=== PATIENT | male | born 1955 | race African-American/Black ===

== ENCOUNTER 2017-08-06 12:24 | Emergency (ER) | payer MEDICARE, MEDICAID ==
[~2017-08-06] VITALS: Ht 177.8 cm; Wt 80.0 kg
[2017-08-06] MEDS ORDERED: INSU100I7 SQ (12:29)
[2017-08-06] MEDS ORDERED: SODIUM CHLORIDE 0.9% 1,000 ML IV ONE (12:42)
[2017-08-06 13:01] LABS: PROTHROMBIN TIME 10.7 sec (9.4-11.6)
[2017-08-06 13:03] LABS: CARBON DIOXIDE 29 mEq/L (21-32); CHLORIDE 105 mEq/L (98-107)
[2017-08-06 13:04] LABS: BASOPHILS % 0.6 % (0.0-2.0); EOSINOPHILS % 1.6 % (0.0-5.0); HEMOGLOBIN. 13.2 g/dL (14.0-18.0); LYMPHOCYTES % 27.8 % (20.0-50.0); MEAN CORPUSCULAR HEMOGLOBIN 32.3 pg (28.0-32.0); MEAN PLATELET VOLUME 7.8 fl (7.4-10.4); MONOCYTES % 7.8 % (2.0-8.0); NEUTROPHILS % 62.2 % (40.0-76.0); PLATELET 230 x1000/uL (130-400)
[2017-08-06 13:10] LABS: ETHANOL BLOOD < 10 mg/dL; TROPONIN I < 0.02 ng/mL (0.00-0.04)
[2017-08-06 16:10] VITALS: BP 131/89
[2017-08-06 16:38] LABS: CLARITY URINE CLEAR (CLEAR); COLOR URINE YELLOW (YELLOW); GLUCOSE URINE NEGATIVE (NEGATIVE); KETONES URINE NEGATIVE (NEGATIVE); LEUKOCYTE ESTERASE URINE NEGATIVE (NEGATIVE); NITRITE URINE NEGATIVE (NEGATIVE); OCCULT BLOOD URINE NEGATIVE (NEGATIVE); PH URINE 6.5 (4.5-8.0); PROTEIN URINE NEGATIVE (NEGATIVE); SPECIFIC GRAVITY URINE 1.021 (1.005-1.030)
[2017-08-06 16:49] LABS: *AMPHETAMINES SCREEN URINE NEGATIVE (NEGATIVE); *BARBITURATES SCREEN URINE NEGATIVE (NEGATIVE); *BENZODIAZEPINES SCREEN URINE NEGATIVE (NEGATIVE); *COCAINE SCREEN URINE PRESUMTIVE POSITIVE (NEGATIVE); CANNABINOID URINE SCREEN NEGATIVE (NEGATIVE); METHADONE URINE SCREEN NEGATIVE (NEGATIVE); OPIATES URINE SCREEN NEGATIVE (NEGATIVE); PHENCYCLIDINE URINE SCREEN NEGATIVE (NEGATIVE)
== END 2017-08-06 16:35 | disposition home or self-care (01) ==
LOC: ER 12:44
DX: R53.83 Other fatigue (principal); I50.9 Heart failure, unspecified; I11.0 Hypertensive heart disease with heart failure; E11.9 Type 2 diabetes mellitus without complications; Z79.4 Long term (current) use of insulin
CPT/HCPCS: 36415; 71010; 80053; 80305; 81003; 82962; 84484; 85025; 85610; 96360; 96361; 99285; G0482; J7030

== ENCOUNTER 2020-07-05 09:06 | Inpatient (IN) | payer MEDICAID, MEDICARE, OTHER ==
[~2020-07-05] VITALS: Ht 182.9 cm; Wt 89.8 kg
[~2020-07-05 09:06] MED LIST: INSU100I7 SQ
[2020-07-05] MEDS ORDERED: METHYLPREDNISOLONE SOD SUCC 125 MG/2 ML VIAL IV STA (10:11)
[2020-07-05] MEDS ORDERED: ALBUTEROL (0.083%) 2.5MG/3ML NEB HHN STA (10:11)
[2020-07-05] MEDS ORDERED: MORPHINE SULFATE 4 MG/ML CPJ (NOT FOR IM USE) IV STA (10:11)
[2020-07-05] MEDS ORDERED: IPRATROPIUM BROMIDE (0.02%) 0.5MG/2.5ML NEB HHN STA (10:11)
[2020-07-05 10:26] LABS: BASOPHILS % 0.7 % (0.0-2.0); EOSINOPHILS % 1.1 % (0.0-5.0); HEMATOCRIT. 42.3 % (42.0-52.0); HEMOGLOBIN. 14.2 g/dL (14.0-18.0); LYMPHOCYTES % 28.2 % (20.0-50.0); MEAN CORPUSCULAR VOLUME 100.9 fL (80.0-94.0); MEAN PLATELET VOLUME 8.2 fl (7.4-10.4); MONOCYTES % 7.4 % (2.0-8.0); NEUTROPHILS % 62.6 % (40.0-76.0); PLATELET 203 x1000/uL (130-400); RED BLOOD CELL COUNT 4.19 mill/uL (4.7-6.1); RED CELL DISTRIBUTION WIDTH 12.5 % (11.6-14.6)
[2020-07-05 10:40] LABS: CHLORIDE 104 mEq/L (98-107)
[2020-07-05] MEDS ORDERED: ACETAMINOPHEN 325MG TABLET PO PRN (15:15)
[2020-07-05] MEDS ORDERED: DEXTROSE 50% WATER 50ML SYRINGE IV PRN (15:15)
[2020-07-05] MEDS ORDERED: ENOXAPARIN 40MG/0.4ML SYR SUBCUT SCH (16:00)
[2020-07-05] MEDS ORDERED: ONDANSETRON HCL 4MG/2ML INJ IV PRN (16:30)
[2020-07-05] MEDS: BLOOD SUGAR DIAGNOSTIC STRIP TEST SCH ×2 (17:00→20:52)
[2020-07-05 17:48] VITALS: BP 146/80
[2020-07-05 18:00] VITALS: BP 146/80
[2020-07-05] MEDS: INSULIN LISPRO 100 UNITS/ML SUBCUT SCH ×2 (18:29→20:51)
[2020-07-05] MEDS ORDERED: PNEUMOCOCCAL 23-VAL P-SAC VAC 0.5 ML IM ONE (18:30)
[2020-07-05 19:13] LABS: INR 1.1; PROTHROMBIN TIME 11.4 sec (9.6-11.0)
[2020-07-05 20:00] VITALS: BP 114/56
[2020-07-05] MEDS: ENOXAPARIN 100MG/ML SYR SUBCUT SCH (20:57)
[2020-07-05] MEDS: IPRATROPIUM/ALBUTEROL 0.5-3(2.5)MG/3ML NEB HHN SCH (21:01)
[2020-07-05 21:34] LABS: *BARBITURATES SCREEN URINE NEGATIVE (NEGATIVE); *BENZODIAZEPINES SCREEN URINE NEGATIVE (NEGATIVE); *COCAINE SCREEN URINE PRESUMTIVE POSITIVE (NEGATIVE); METHADONE URINE SCREEN NEGATIVE (NEGATIVE); OPIATES URINE SCREEN PRESUMTIVE POSITIVE (NEGATIVE); PHENCYCLIDINE URINE SCREEN NEGATIVE (NEGATIVE)
[2020-07-05 21:35] LABS: *AMPHETAMINES SCREEN URINE NEGATIVE (NEGATIVE); CANNABINOID URINE SCREEN NEGATIVE (NEGATIVE)
[2020-07-05] MEDS: TEMAZEPAM 15MG CAPSULE PO PRN (21:43)
[2020-07-05 22:00] VITALS: BP 131/77
[2020-07-06] VITALS (11 sets, daily range): BP systolic 119–146; BP diastolic 75–88
[2020-07-06] MEDS: IPRATROPIUM/ALBUTEROL 0.5-3(2.5)MG/3ML NEB HHN SCH ×6 (00:30→20:54)
[2020-07-06 06:50] LABS: CHLORIDE 104 mEq/L (98-107)
[2020-07-06] MEDS: BLOOD SUGAR DIAGNOSTIC STRIP TEST SCH ×4 (06:50→20:16)
[2020-07-06 06:54] LABS: BASOPHILS % 0.3 % (0.0-2.0); EOSINOPHILS % 0.2 % (0.0-5.0); HEMATOCRIT. 38.4 % (42.0-52.0); HEMOGLOBIN. 13.1 g/dL (14.0-18.0); LYMPHOCYTES % 15.4 % (20.0-50.0); MEAN CORPUSCULAR HEMOGLOBIN 34.5 pg (28.0-32.0); MEAN CORPUSCULAR VOLUME 100.9 fL (80.0-94.0); MEAN PLATELET VOLUME 8.2 fl (7.4-10.4); MONOCYTES % 6.6 % (2.0-8.0); NEUTROPHILS % 77.5 % (40.0-76.0); PLATELET 184 x1000/uL (130-400); RED BLOOD CELL COUNT 3.81 mill/uL (4.7-6.1); RED CELL DISTRIBUTION WIDTH 12.4 % (11.6-14.6)
[2020-07-06] MEDS: INSULIN LISPRO 100 UNITS/ML SUBCUT SCH ×4 (08:46→20:16)
[2020-07-06] MEDS: ENOXAPARIN 100MG/ML SYR SUBCUT SCH (08:56)
[2020-07-06] MEDS ORDERED: IOHEXOL-350 100 ML BOTTLE ONE (09:48)
[2020-07-06] MEDS: ENOXAPARIN 80MG/0.8ML SYR SUBCUT SCH (20:16)
[2020-07-06] MEDS: TEMAZEPAM 15MG CAPSULE PO PRN (20:16)
[2020-07-06] MEDS: FAMOTIDINE 20MG TABLET PO SCH (23:46)
[2020-07-06] MEDS: TRAZODONE HCL 50MG TABLET PO SCH (23:46)
[2020-07-07] VITALS (12 sets, daily range): BP systolic 101–131; BP diastolic 59–95
[2020-07-07] MEDS: IPRATROPIUM/ALBUTEROL 0.5-3(2.5)MG/3ML NEB HHN SCH ×6 (04:00→20:47)
[2020-07-07] MEDS ORDERED: METF-416 PO (05:56)
[2020-07-07] MEDS ORDERED: ASPI-1497 PO (05:56)
[2020-07-07] MEDS: BLOOD SUGAR DIAGNOSTIC STRIP TEST SCH ×4 (06:23→21:04)
[2020-07-07] MEDS: FAMOTIDINE 20MG TABLET PO SCH ×2 (07:41→21:03)
[2020-07-07] MEDS: ENOXAPARIN 80MG/0.8ML SYR SUBCUT SCH ×2 (07:41→21:03)
[2020-07-07] MEDS: LOSARTAN POTASSIUM 25 MG TABLET PO SCH (07:41)
[2020-07-07] MEDS: INSULIN LISPRO 100 UNITS/ML SUBCUT SCH ×4 (07:44→21:00)
[2020-07-07 12:19] LABS: BG BASE EXCESS 0.4 mmol/L (-2.0-2.0); BG CARBOXYHEMOGLOBIN 0.1 % (0.5-1.5); BG FRACTION INSPIRED OXYGEN 21; BG HCO3 ACT 25.6 mmol/L (22.0-26.0); BG METHEMOGLOBIN 0.2 % (0.0-1.5); BG OXYHEMOGLOBIN 96.7 % (94.0-97.0); BG PH 7.392 (7.350-7.450); BG PO2 91.8 mmHg (75.0-100.0); BG SAMPLE SITE RIGHT RADIAL; BG TOTAL HEMOGLOBIN 14.1 g/dL (12.0-18.0); BG VENT MODE RA
[2020-07-07] MEDS ORDERED: APIX5TAB MT (12:30)
[2020-07-07] MEDS ORDERED: LOSA25TA3 MT (12:30)
[2020-07-07] MEDS ORDERED: ALBU90AE INH (12:30)
[2020-07-07] MEDS ORDERED: BLOO1KIT74 TP (12:30)
[2020-07-07] MEDS ORDERED: NICO-645 TP (13:30)
[2020-07-07] MEDS: HYDROCODONE/ACETAMINOPHEN 5/325MG TABLET PO PRN ×2 (13:31→19:30)
[2020-07-07] MEDS: NICOTINE 14MG PATCH TD SCH (15:51)
[2020-07-07] MEDS: TRAZODONE HCL 50MG TABLET PO SCH (21:03)
[2020-07-07] MEDS: TEMAZEPAM 15MG CAPSULE PO PRN (21:03)
[2020-07-08] VITALS (12 sets, daily range): BP systolic 111–163; BP diastolic 67–95
[2020-07-08] MEDS: IPRATROPIUM/ALBUTEROL 0.5-3(2.5)MG/3ML NEB HHN SCH ×3 (00:35→17:35)
[2020-07-08] MEDS: BLOOD SUGAR DIAGNOSTIC STRIP TEST SCH ×4 (06:21→20:15)
[2020-07-08] MEDS: INSULIN LISPRO 100 UNITS/ML SUBCUT SCH ×5 (07:20→21:52)
[2020-07-08] MEDS: LOSARTAN POTASSIUM 25 MG TABLET PO SCH (09:43)
[2020-07-08] MEDS: ENOXAPARIN 80MG/0.8ML SYR SUBCUT SCH ×2 (09:43→20:09)
[2020-07-08] MEDS: FAMOTIDINE 20MG TABLET PO SCH ×2 (09:43→20:09)
[2020-07-08] MEDS: NICOTINE 14MG PATCH TD SCH (09:44)
[2020-07-08] MEDS: HYDROCODONE/ACETAMINOPHEN 10/325MG TABLET PO PRN (09:44)
[2020-07-08 15:28] LABS: HEMATOCRIT 39.9 % (42.0-52.0); HEMOGLOBIN 13.3 g/dL (14.0-18.0); MEAN CORPUSCULAR HEMOGLOBIN 33.9 pg (28.0-32.0); MEAN CORPUSCULAR VOLUME 101.5 fL (80.0-94.0); PLATELET 200 x1000/uL (130-400); RED BLOOD CELL COUNT 3.93 mill/uL (4.7-6.1); RED CELL DISTRIBUTION WIDTH 12.3 % (11.6-14.6)
[2020-07-08 15:32] LABS: CHLORIDE 102 mEq/L (98-107)
[2020-07-08] MEDS: TEMAZEPAM 15MG CAPSULE PO PRN ×2 (20:09→21:53)
[2020-07-08] MEDS: TRAZODONE HCL 50MG TABLET PO SCH (20:09)
[2020-07-09] VITALS (8 sets, daily range): BP systolic 111–141; BP diastolic 71–101
[2020-07-09] MEDS: BLOOD SUGAR DIAGNOSTIC STRIP TEST SCH ×4 (07:40→21:02)
[2020-07-09] MEDS: INSULIN LISPRO 100 UNITS/ML SUBCUT SCH ×3 (08:10→21:00)
[2020-07-09] MEDS: NICOTINE 14MG PATCH TD SCH (09:07)
[2020-07-09] MEDS: FAMOTIDINE 20MG TABLET PO SCH ×2 (09:07→20:48)
[2020-07-09] MEDS: LOSARTAN POTASSIUM 25 MG TABLET PO SCH (09:07)
[2020-07-09] MEDS: ENOXAPARIN 80MG/0.8ML SYR SUBCUT SCH ×2 (09:09→20:48)
[2020-07-09] MEDS: HYDROCODONE/ACETAMINOPHEN 5/325MG TABLET PO PRN ×2 (11:55→20:51)
[2020-07-09] MEDS: TRAZODONE HCL 50MG TABLET PO SCH (20:50)
[2020-07-09] MEDS: TEMAZEPAM 15MG CAPSULE PO PRN (20:50)
[2020-07-10] VITALS: BP 102/63
[2020-07-10] MEDS: BLOOD SUGAR DIAGNOSTIC STRIP TEST SCH ×4 (06:54→20:20)
[2020-07-10] MEDS: INSULIN LISPRO 100 UNITS/ML SUBCUT SCH ×4 (06:54→21:00)
[2020-07-10 08:00] VITALS: BP 110/65
[2020-07-10] MEDS: NICOTINE 14MG PATCH TD SCH (09:09)
[2020-07-10] MEDS: ENOXAPARIN 80MG/0.8ML SYR SUBCUT SCH ×2 (09:10→20:18)
[2020-07-10] MEDS: LOSARTAN POTASSIUM 25 MG TABLET PO SCH (09:10)
[2020-07-10] MEDS: FAMOTIDINE 20MG TABLET PO SCH ×2 (09:10→20:18)
[2020-07-10] MEDS: HYDROCODONE/ACETAMINOPHEN 10/325MG TABLET PO PRN ×2 (09:53→20:20)
[2020-07-10 12:00] VITALS: BP 111/68
[2020-07-10 20:00] VITALS: BP 136/90
[2020-07-10] MEDS: TRAZODONE HCL 50MG TABLET PO SCH (20:19)
[2020-07-10] MEDS: IPRATROPIUM/ALBUTEROL 0.5-3(2.5)MG/3ML NEB HHN SCH (20:30)
[2020-07-11] VITALS: BP 116/82
[2020-07-11] MEDS: IPRATROPIUM/ALBUTEROL 0.5-3(2.5)MG/3ML NEB HHN SCH ×4 (00:26→12:18)
[2020-07-11 04:00] VITALS: BP 106/64
[2020-07-11] MEDS: INSULIN LISPRO 100 UNITS/ML SUBCUT SCH ×2 (06:17→12:40)
[2020-07-11] MEDS: BLOOD SUGAR DIAGNOSTIC STRIP TEST SCH ×2 (06:17→12:10)
[2020-07-11] MEDS: HYDROCODONE/ACETAMINOPHEN 10/325MG TABLET PO PRN (06:20)
[2020-07-11 08:00] VITALS: BP 125/68
[2020-07-11] MEDS: NICOTINE 14MG PATCH TD SCH (09:00)
[2020-07-11] MEDS: FAMOTIDINE 20MG TABLET PO SCH (09:00)
[2020-07-11] MEDS: ENOXAPARIN 80MG/0.8ML SYR SUBCUT SCH (09:49)
[2020-07-11] MEDS: LOSARTAN POTASSIUM 25 MG TABLET PO SCH (09:49)
[2020-07-11 12:00] VITALS: BP 118/72
[2020-07-11 13:34] VITALS: BP 118/72
== END 2020-07-11 15:30 | disposition home or self-care (01) | DRG 177 ==
LOC: ER 09:06 → 3WST 13:53 → EDBEDREQ 13:55 → ENRESERV 16:59 → CANRESERV 16:59 → ENRESERV 17:00 → 7WST 07-08 20:32 → 8WST 07-09 17:35
PROVIDERS: ADMIT Internal Medicine; ATTEND Internal Medicine
DX: U07.1 COVID-19 (principal); I26.99 Other pulmonary embolism without acute cor pulmonale; I50.43 Acute on chronic combined systolic (congestive) and diastolic (congestive) heart failure; J12.89 Other viral pneumonia; J44.1 Chronic obstructive pulmonary disease with (acute) exacerbation; D68.59 Other primary thrombophilia; I48.20 Chronic atrial fibrillation, unspecified; J44.0 Chronic obstructive pulmonary disease with (acute) lower respiratory infection; I11.0 Hypertensive heart disease with heart failure; E11.9 Type 2 diabetes mellitus without complications; F17.210 Nicotine dependence, cigarettes, uncomplicated; F14.90 Cocaine use, unspecified, uncomplicated; F17.200 Nicotine dependence, unspecified, uncomplicated; G62.9 Polyneuropathy, unspecified; R06.03 Acute respiratory distress; Z79.4 Long term (current) use of insulin; Z59.0 Homelessness; Z79.01 Long term (current) use of anticoagulants; Z79.899 Other long term (current) drug therapy; Z71.51 Drug abuse counseling and surveillance of drug abuser; T40.5X1A Poisoning by cocaine, accidental (unintentional), initial encounter
CPT/HCPCS: 36415; 36600; 71045; 71275; 80048; 80053; 80061; 80305; 82375; 82805; 82962; 83880; 84443; 84484; 85025; 85027; 85379; 87426; 87635; 90732; 93005; 93306; 93970; 94640; 94644; 96374; 97110; 97116; 97162; 97535; 99285; J1650; J1815; J2270; J2930; Q9967

== ENCOUNTER 2022-04-30 16:35 | Emergency (ER) | payer OTHER, MEDICAID ==
[~2022-04-30] VITALS: Ht 182.9 cm; Wt 82.0 kg
[~2022-04-30 16:35] MED LIST changes: +ALBU90AE INH; +APIX5TAB MT; +BLOO1KIT74 TP; +LOSA25TA3 MT; +METF-416 PO; +NICO-645 TP
[2022-04-30 16:47] VITALS: BP 152/83
== END 2022-04-30 18:16 | disposition left against medical advice (07) ==
LOC: ER 16:35
DX: Z53.21 Procedure and treatment not carried out due to patient leaving prior to being seen by health care provider (principal)
CPT/HCPCS: 99281